=== PATIENT | male | born 1950 | race Caucasian/White ===

== ENCOUNTER 2024-01-14 07:28 | Day surgery (SDC) | payer MEDICARE, OTHER ==
[~2024-01-14] VITALS: Ht 182.9 cm; Wt 105.1 kg
[2024-01-14] VITALS (12 sets, daily range): BP systolic 104–134; BP diastolic 48–89; PULSE 65–81; RESP 10–12; TEMP 97.7; O2SAT 95–98
[2024-01-14] MEDS ORDERED: nitroGLYCERIN 0.4mg SUBLingual tab SL PRN (08:05)
[2024-01-14] MEDS ORDERED: ASPI-1397 PO (08:06)
[2024-01-14] MEDS ORDERED: CHOL20002 PO (08:06)
[2024-01-14] MEDS ORDERED: MULT-1085 PO (08:06)
[2024-01-14] MEDS ORDERED: LISI20TA28 PO (08:06)
[2024-01-14 08:08] LABS: BASOPHILS # (AUTO) 0.1 X10'3 (0-0.2); EOSINOPHILS # (AUTO) 0.2 X10'3 (0-0.9); EOSINOPHILS % (AUTO) 2.3 % (0-6); HEMATOCRIT 48.4 % (42.0-52.0); HEMOGLOBIN 16.5 g/dl (14.0-17.9); LYMPHOCYTES # (AUTO) 3.1 X10'3 (1.1-4.8); LYMPHOCYTES % (AUTO) 34.9 % (21-51); MEAN CORPUSCULAR HEMOGLOBIN 32.5 PG (27.0-31.0); MEAN CORPUSCULAR HGB CONC 34.1 g/dL (33.0-36.5); MEAN CORPUSCULAR VOLUME 95.3 FL (78-98); MONOCYTES # (AUTO) 0.8 X10'3 (0-0.9); MONOCYTES % (AUTO) 9.2 % (2-12); NEUTROPHILS # (AUTO) 4.7 X10'3 (1.8-7.7); NEUTROPHILS % (AUTO) 52.6 % (42-75); PLATELET COUNT 292 X10'3 (140-440); RED BLOOD COUNT 5.08 X10'6 (4.70-6.10); RED CELL DISTRIBUTION WIDTH 13.3 % (11.5-14.5); WHITE BLOOD COUNT 8.9 X10'3 (4.5-11.0)
[2024-01-14 08:18] LABS: ALBUMIN 3.5 G/DL (3.4-5.0); ANION GAP 10 (8-16); BLOOD UREA NITROGEN 22 MG/DL (7-18); BUN/CREATININE RATIO 17.6 (10.0-20.0); CHLORIDE 104 MMOL/L (99-107); CREATININE 1.25 MG/DL (0.60-1.10); GLUCOSE 108 MG/DL (70-104); POTASSIUM 4.1 MMOL/L (3.5-5.1); SODIUM 138 MMOL/L (135-145); TOTAL CARBON DIOXIDE 24.3 MMOL/L (24-32); eCRCL 59 ML/MIN; eGFR 57 ML/MIN
[2024-01-14] MEDS: LORazepam 0.5 MG tablet PO PRN (08:26)
[2024-01-14] MEDS: diphenhydrAMINE 25mg capsule PO PRN (08:26)
[2024-01-14] MEDS: normal saline 1,000 ML IV SCH (08:27)
[2024-01-14 08:40] LABS: APTT 27 SECONDS (22-32); PROTHROMBIN TIME 10.8 SECONDS (9.0-12.0)
[2024-01-14] MEDS ORDERED: iohexol 350 MG/ML 50ML vial IV ONE (08:45)
[2024-01-14] MEDS ORDERED: LIDOcaine 1% 30ml preserv. free vial ONE (08:45)
[2024-01-14] MEDS ORDERED: iohexol 350MG/ML 100ml bottle IV ONE (08:45)
[2024-01-14] MEDS ORDERED: midazolam 1 mg/ML 2ml injection ONE (08:52)
[2024-01-14] MEDS ORDERED: fentaNYL/PF 50MCG/1 ML 2ML syringe ONE (08:52)
[2024-01-14] MEDS ORDERED: acetaminophen 325mg tablet PO PRN (10:35)
[2024-01-14] MEDS ORDERED: ondansetron/PF 4mg/2ml inj IV PRN (10:35)
[2024-01-14] MEDS ORDERED: proCHLORperazine 10 MG/2 ml inj IV PRN (10:35)
[2024-01-14] MEDS ORDERED: HYDROcodone/acetaminophen 10/325mg tab PO PRN (10:35)
[2024-01-14] MEDS ORDERED: HYDROcodone/acetaminophen 5mg/325mg tablet PO PRN (10:35)
[2024-01-14] MEDS ORDERED: normal saline 1000ml 1,000 ML IV SCH (10:35)
[2024-01-14] MEDS ORDERED: OXAZEpam 15mg capsule PO PRN (10:35)
== END 2024-01-14 15:50 | disposition home or self-care (01) ==
LOC: SSTAY O 07:28
PROVIDERS: ATTEND Internal Medicine Cardiovascular Disease
DX: R94.39 Abnormal result of other cardiovascular function study (principal); I25.10 Atherosclerotic heart disease of native coronary artery without angina pectoris; I10 Essential (primary) hypertension; E66.9 Obesity, unspecified; Z68.31 Body mass index [BMI] 31.0-31.9, adult
CPT/HCPCS: 36415; 71046; 80048; 85025; 85610; 85730; 93005; 93459; 99152; A6258; C1760; J1644; J2001; J2250; J3010; J7030; Q0163; Q9967; Z7610; 93458; 99153; J3490

== ENCOUNTER 2024-02-03 10:26 | Inpatient (IN) | payer MEDICARE, OTHER ==
[2024-01-27] MEDS: albuterol 2.5 MG/3 ML nebule NEB ONE (13:59)
[2024-01-27 14:00] VITALS: PULSE 78; RESP 18; O2SAT 98
[2024-01-27 14:06] VITALS: PULSE 78; RESP 17
[2024-01-27 14:54] LABS: BASOPHILS # (AUTO) 0.1 X10'3 (0-0.2); BASOPHILS % (AUTO) 0.7 % (0-1); EOSINOPHILS # (AUTO) 0.2 X10'3 (0-0.9); EOSINOPHILS % (AUTO) 1.7 % (0-6); LYMPHOCYTES # (AUTO) 4.6 X10'3 (1.1-4.8); LYMPHOCYTES % (AUTO) 41.4 % (21-51); MEAN CORPUSCULAR HEMOGLOBIN 31.7 PG (27.0-31.0); MEAN CORPUSCULAR HGB CONC 33.5 g/dL (33.0-36.5); MEAN CORPUSCULAR VOLUME 94.7 FL (78-98); MEAN PLATELET VOLUME 7.8 FL (7.4-10.4); MONOCYTES % (AUTO) 8.9 % (2-12); NEUTROPHILS # (AUTO) 5.2 X10'3 (1.8-7.7); NEUTROPHILS % (AUTO) 47.3 % (42-75); PRE OP HEMATOCRIT 44.4 % (42.0-52.0); PRE OP HEMOGLOBIN 14.8 g/dL (14.0-17.9); PRE OP PLATELET COUNT 281 X10'3 (140-440); RED BLOOD COUNT 4.68 X10'6 (4.70-6.10); RED CELL DISTRIBUTION WIDTH 13.3 % (11.5-14.5)
[2024-01-27 15:00] LABS: BILIRUBIN,URINE NEGATIVE (Neg); CLARITY,URINE CLEAR (Clear); COLOR,URINE YELLOW (Yellow); GLUCOSE, URINE NEGATIVE (Neg); KETONES,URINE NEGATIVE (Neg); LEUKOCYTE ESTERASE ,URINE NEGATIVE (Neg); NITRITES, URINE NEGATIVE (Neg); OCCULT BLOOD,URINE NEGATIVE (Neg); PH,URINE 5.5 (4.8-8.0); PROTEIN,URINE NEGATIVE (Neg); UROBILINOGEN,URINE 0.2 E.U/dL (0.2-1.0)
[2024-01-27 15:04] LABS: UA COLLECTION TYPE CLN CATCH MIDSTREAM
[2024-01-27 15:06] LABS: PRE OP PROTIME 10.5 SECONDS (9.0-12.0)
[2024-01-27 15:08] LABS: HEMOGLOBIN A1C 5.7 % (4.5-6.2)
[2024-01-27 15:19] LABS: ALBUMIN 3.6 G/DL (3.4-5.0); ALKALINE PHOSPHATASE 76 IU/L (46-116); BLOOD UREA NITROGEN 28 MG/DL (7-18); BUN/CREATININE RATIO 21.1 (10.0-20.0); CHLORIDE 103 MMOL/L (99-107); CREATININE 1.33 MG/DL (0.60-1.10); PRE OP ALT 33 U/L (30-65); PRE OP ANION GAP 10 (8-16); PRE OP AST 34 U/L (10-37); PRE OP BILIRUB, TOTAL 0.5 MG/DL (0.0-1.0); PRE OP GLUCOSE 94 MG/DL (70-104); PRE OP POTASSIUM 3.9 MMOL/L (3.4-5.1); PRE OP SODIUM 136 MMOL/L (135-145); TOTAL CARBON DIOXIDE 23.4 MMOL/L (24-32); TOTAL PROTEIN 7.3 G/DL (6.4-8.2); eGFR 53 ML/MIN
[2024-01-28 07:35] LABS: ABG OXYGEN SATURATION 94.9 % (92-98.5); ABG PCO2 (T) 30.4 mmHg (35.0-48.0); ABG PH (T) 7.435 (7.340-7.440); ABG PO2 (T) 75.6 mmHg (75.0-100.0); ALLEN'S TEST POSITIVE; FCOHb 0.2 % (0.5-1.5); FHHb 5.1 % (0.0-5.0); FLOW 0 L/min; FMetHb 0.2 % (0.0-1.5); FO2Hb 94.5 % (94-97); MODE RA; TOTAL HEMOGLOBIN 15.7 G/dl (14.0-17.9)
[2024-02-03] VITALS (24 sets, daily range): BP systolic 92–153; BP diastolic 35–93; PULSE 68–92; RESP 12–20; TEMP 96.6; O2SAT 93–98
[~2024-02-03] VITALS: Ht 182.9 cm; Wt 111.3 kg
[2024-02-03] MEDS: ringers solution, lacted 1,000 ML IV SCH (05:30)
[~2024-02-03 10:26] MED LIST: ADVIL PO; ASPI-1397 PO; CHOL20002 PO; EXCEDRIN PO; LISI20TA28 PO; MULT-1085 PO; dextrose 50%-water 50ml dispensing syringe IV PRN
[2024-02-03] MEDS: cefazolin 2gm/D5W 100mL 100 ML IV ONE (10:51)
[2024-02-03] MEDS: Insulin Reg/NS 100units/100mL 100 ML IV SCH ×2 (10:52→16:39)
[2024-02-03] MEDS: vancomycin 1,000mg inj ONE (11:01)
[2024-02-03] MEDS: heparin 10,000 units/1 ML INJ ONE (11:01)
[2024-02-03] MEDS: epiNEPHrine 1 mg/ml inj ONE (11:01)
[2024-02-03] MEDS: ceFAZolin 1000mg inj ONE (11:01)
[2024-02-03] MEDS: BUPIVAcaine 0.5% inj/PF 30 ML ONE ×2 (11:01→13:33)
[2024-02-03] MEDS ORDERED: MIDAZolam 1mg/ml 10ml vial ONE (11:18)
[2024-02-03] MEDS ORDERED: SUfentanil 50mcg/ml 1ml amp IV ONE (11:18)
[2024-02-03] MEDS: vancomycin 1,500 MG in NS 300ml IV soln IV ONE (11:51)
[2024-02-03] MEDS: mupirocin 2% nasal ointment 1gm UD NS ONE (11:51)
[2024-02-03] MEDS: metoprolol tartrate 12.5mg (1/2 tablet) PO ONE (11:52)
[2024-02-03] MEDS: famotidine 20mg tablet PO ONE (11:52)
[2024-02-03] MEDS: albuterol 2.5 MG/3 ML nebule NEB ONE (12:12)
[2024-02-03] MEDS ORDERED: isoflurane 100ml inhalation liquid IH ONE (12:17)
[2024-02-03] MEDS: LORazepam 2 mg/ml vial IV ONE (12:19)
[2024-02-03 12:55] LABS: ABG BASE EXCESS -4.2 mmol/L (-2.0-2.0); ABG HCO3 21.1 mmol/L (22.0-26.0); ABG OXYGEN SATURATION 98.9 % (92-98.5); ABG PCO2 39.6 mmHg (35.0-48.0); ABG PH 7.344 (7.340-7.440); ABG PO2 183.1 mmHg (75.0-100.0); CL (ABG) 104 mmol/L (99-107); FCOHb 0.3 % (0.5-1.5); FHHb 1.1 % (0.0-5.0); FMetHb 0.3 % (0.0-1.5); FO2Hb 98.3 % (94-97); GLUCOSE (ABG) 84 mg/dl (70-104); IONIZED CA (ABG) 1.11 mmol/L (1.10-1.30); K (ABG) 3.8 mmol/L (3.5-5.1)
[2024-02-03] MEDS: BUPIVAcaine 0.5% inj/PF 30 ml vial IJ ONE (13:00)
[2024-02-03] MEDS ORDERED: propofol inj 20 ML IV ONE (13:08)
[2024-02-03] MEDS ORDERED: phenylephrine 10mg/ml inj. -priapism dosing ONE (13:09)
[2024-02-03] MEDS ORDERED: rocuronium 10mg/ml inj IV ONE ×4 (13:09→13:21)
[2024-02-03] MEDS ORDERED: LIDOcaine 2% (20mg/ml) 5ml vial ONE (13:09)
[2024-02-03] MEDS ORDERED: 0.9 % SODIUM CHLORIDE 10 ML VIAL ONE (13:09)
[2024-02-03 14:08] LABS: ABG BASE EXCESS VENOUS -2.1 mmol/L (-2.0 - 2.0); ABG HCO3 VENOUS 23.5 mmol/L (21.0-28.0); ABG OXYGEN SATURATION VENOUS 85.5 % (75 - 99 %); ABG PCO2 VENOUS 43.5 mmHg (41.0-54.0); ABG PO2 VENOUS 50.2 mmHg (25.0-35.0); CL (ABG) 100 mmol/L (99-107); FCOHb VENOUS 0.3 % (0.0-3.9); FHHb VENOUS 14.4 %; FMetHb VENOUS 0.3 % (0.0-0.5); GLUCOSE (ABG) 97 mg/dl (70-104); IONIZED CA (ABG) 0.95 mmol/L (1.10-1.30); K (ABG) 3.7 mmol/L (3.5-5.1); TOTAL HEMOGLOBIN 10.5 G/dl (14.0-17.9)
[2024-02-03] MEDS: FENTANYL-0.9 % NACL/PF 100 ML IV SCH (14:10)
[2024-02-03] MEDS: midazolam 1 mg/ML 2ml injection IV ONE (14:10)
[2024-02-03] MEDS: midazolam 100mg in NS 100ml 100 ML IV SCH (14:10)
[2024-02-03] MEDS ORDERED: fentaNYL/PF 50MCG/1 ML 2ML syringe IV PRN (14:10)
[2024-02-03 14:18] LABS: ABG BASE EXCESS -3.3 mmol/L (-2.0-2.0); ABG HCO3 22.5 mmol/L (22.0-26.0); ABG OXYGEN SATURATION 99.2 % (92-98.5); ABG PCO2 43.1 mmHg (35.0-48.0); ABG PH 7.335 (7.340-7.440); ABG PO2 371.1 mmHg (75.0-100.0); CL (ABG) 102 mmol/L (99-107); FCOHb 0.2 % (0.5-1.5); FHHb 0.8 % (0.0-5.0); FMetHb 0.3 % (0.0-1.5); FO2Hb 98.7 % (94-97); GLUCOSE (ABG) 98 mg/dl (70-104); IONIZED CA (ABG) 1.02 mmol/L (1.10-1.30); K (ABG) 4.3 mmol/L (3.5-5.1)
[2024-02-03 14:51] LABS: ABG BASE EXCESS -3.7 mmol/L (-2.0-2.0); ABG HCO3 21.8 mmol/L (22.0-26.0); ABG OXYGEN SATURATION 99.1 % (92-98.5); ABG PCO2 41.2 mmHg (35.0-48.0); ABG PH 7.341 (7.340-7.440); ABG PO2 291.4 mmHg (75.0-100.0); CL (ABG) 103 mmol/L (99-107); FCOHb 0.3 % (0.5-1.5); FHHb 0.9 % (0.0-5.0); FMetHb 0.1 % (0.0-1.5); FO2Hb 98.7 % (94-97); GLUCOSE (ABG) 107 mg/dl (70-104); IONIZED CA (ABG) 1.06 mmol/L (1.10-1.30); K (ABG) 4.5 mmol/L (3.5-5.1); TOTAL HEMOGLOBIN 11.9 G/dl (14.0-17.9)
[2024-02-03 15:12] LABS: ABG BASE EXCESS -2.4 mmol/L (-2.0-2.0); ABG HCO3 23.5 mmol/L (22.0-26.0); ABG OXYGEN SATURATION 99.1 % (92-98.5); ABG PCO2 45.2 mmHg (35.0-48.0); ABG PH 7.334 (7.340-7.440); ABG PO2 355.2 mmHg (75.0-100.0); CL (ABG) 103 mmol/L (99-107); FCOHb 0.3 % (0.5-1.5); FHHb 0.9 % (0.0-5.0); FMetHb 0.3 % (0.0-1.5); FO2Hb 98.5 % (94-97); GLUCOSE (ABG) 114 mg/dl (70-104); IONIZED CA (ABG) 1.91 mmol/L (1.10-1.30); K (ABG) 4.4 mmol/L (3.5-5.1); TOTAL HEMOGLOBIN 11.5 G/dl (14.0-17.9)
[2024-02-03] MEDS ORDERED: ondansetron/PF 4mg/2ml inj ONE (15:27)
[2024-02-03] MEDS ORDERED: dexamethasone sod phosphate 4mg/ml inj. ONE (15:27)
[2024-02-03 15:29] LABS: ABG BASE EXCESS -3.1 mmol/L (-2.0-2.0); ABG HCO3 21.3 mmol/L (22.0-26.0); ABG OXYGEN SATURATION 98.7 % (92-98.5); ABG PO2 221.8 mmHg (75.0-100.0); CL (ABG) 104 mmol/L (99-107); FCOHb 0.2 % (0.5-1.5); FHHb 1.3 % (0.0-5.0); FMetHb 0.3 % (0.0-1.5); FO2Hb 98.2 % (94-97); GLUCOSE (ABG) 110 mg/dl (70-104); IONIZED CA (ABG) 1.21 mmol/L (1.10-1.30); K (ABG) 4.3 mmol/L (3.5-5.1); TOTAL HEMOGLOBIN 11.6 G/dl (14.0-17.9)
[2024-02-03 15:32] LABS: ACTIVATED CLOTTING TIME 130 SEC (101-148)
[2024-02-03] MEDS ORDERED: ceFAZolin 1000mg inj ONE (15:37)
[2024-02-03] MEDS ORDERED: potassium Cl 20 mEq SR tablet PO PRN (16:05)
[2024-02-03] MEDS ORDERED: potassium Cl 40MEQ/1/2NS 520ml 520 ML IV PRN (16:05)
[2024-02-03] MEDS ORDERED: insulin glargine (Lantus) pen - multi-dose SQ PRN (16:05)
[2024-02-03] MEDS ORDERED: sodium phosphate inj. 30 MMOL in dextrose 5%-water 250 ML IV PRN (16:05)
[2024-02-03] MEDS ORDERED: potassium CL 10mEq/100ml bag 100 ML IV PRN (16:05)
[2024-02-03] MEDS ORDERED: sodium phosphate inj. 15 MMOL in dextrose 5%-water 250 ML IV PRN (16:05)
[2024-02-03] MEDS ORDERED: mineral oil 133ml enema RC PRN (16:05)
[2024-02-03] MEDS ORDERED: dextrose 50%-water 50ml dispensing syringe IV PRN (16:05)
[2024-02-03] MEDS ORDERED: magnesium sulf-water 4G/100mL 100 ML IV PRN (16:05)
[2024-02-03] MEDS ORDERED: metoclopramide 5 mg/ml inj IV PRN (16:05)
[2024-02-03] MEDS ORDERED: bisacodyl 10mg suppository rectal RC PRN (16:05)
[2024-02-03] MEDS ORDERED: potassium Cl 40MEQ/270ML bag 250 ML IV PRN (16:05)
[2024-02-03] MEDS ORDERED: Neutra Phos packet PO PRN (16:05)
[2024-02-03] MEDS ORDERED: niCARDipine-NS 40mg/200ml IVPB 200 ML IV PRN (16:05)
[2024-02-03] MEDS ORDERED: ondansetron/PF 4mg/2ml inj IV PRN (16:05)
[2024-02-03 16:30] LABS: ABG BASE EXCESS -2.3 mmol/L (-2.0-2.0); ABG HCO3 22.8 mmol/L (22.0-26.0); ABG OXYGEN SATURATION 99.2 % (92-98.5); ABG PCO2 (T) 40.4 mmHg (35.0-48.0); ABG PH (T) 7.369 (7.340-7.440); ABG PO2 (T) 168.6 mmHg (75.0-100.0); FCOHb 0.5 % (0.5-1.5); FHHb 0.8 % (0.0-5.0); FMetHb 0.3 % (0.0-1.5); FO2Hb 98.4 % (94-97); MODE VENT - SIMV; PATIENT TEMPERATURE 36.9; PEEP 5 cm H2O; RESPIRATORY RATE 12 b/min; TIDAL VOLUME 600 mL; TOTAL HEMOGLOBIN 14.1 G/dl (14.0-17.9)
[2024-02-03] MEDS: sodium chloride 0.45% 1,000 ML IV SCH (16:36)
[2024-02-03] MEDS: albumin (Human) 5% 250ml 250 ML IV PRN (16:38)
[2024-02-03] MEDS: nitroGLYCERIN-Tridil 50MG/D5W 250 ML IV SCH (16:45)
[2024-02-03 17:01] LABS: BASOPHILS % (AUTO) 0.2 % (0-1); EOSINOPHILS # (AUTO) 0.1 X10'3 (0-0.9); EOSINOPHILS % (AUTO) 0.3 % (0-6); HEMATOCRIT 40.7 % (42.0-52.0); HEMOGLOBIN 13.6 g/dl (14.0-17.9); LYMPHOCYTES # (AUTO) 1.9 X10'3 (1.1-4.8); LYMPHOCYTES % (AUTO) 10.1 % (21-51); MEAN CORPUSCULAR HEMOGLOBIN 32.1 PG (27.0-31.0); MEAN CORPUSCULAR HGB CONC 33.5 g/dL (33.0-36.5); MEAN CORPUSCULAR VOLUME 95.8 FL (78-98); MEAN PLATELET VOLUME 8.4 FL (7.4-10.4); MONOCYTES # (AUTO) 0.9 X10'3 (0-0.9); MONOCYTES % (AUTO) 4.8 % (2-12); NEUTROPHILS % (AUTO) 84.6 % (42-75); PLATELET COUNT 238 X10'3 (140-440); RED BLOOD COUNT 4.25 X10'6 (4.70-6.10); RED CELL DISTRIBUTION WIDTH 13.4 % (11.5-14.5); WHITE BLOOD COUNT 18.9 X10'3 (4.5-11.0)
[2024-02-03 17:20] LABS: ALANINE AMINOTRANSFERASE 28 U/L (12-78); ALBUMIN/GLOBULIN RATIO 1.2 (1.1-1.5); ALKALINE PHOSPHATASE 54 IU/L (46-116); ANION GAP 12 (8-16); ASPARTATE AMINO TRANSFERASE 41 U/L (10-37); BILIRUBIN,TOTAL 0.6 MG/DL (0.1-1.0); BLOOD UREA NITROGEN 17 MG/DL (7-18); CALCIUM 8.6 MG/DL (8.5-10.1); CHLORIDE 103 MMOL/L (99-107); CREATININE 1.13 MG/DL (0.60-1.10); GLUCOSE 140 MG/DL (70-104); MAGNESIUM 2.1 MG/DL (1.5-2.4); SODIUM 138 MMOL/L (135-145); TOTAL CARBON DIOXIDE 23.3 MMOL/L (24-32); TOTAL PROTEIN 5.6 G/DL (6.4-8.2); eCRCL 65 ML/MIN; eGFR 64 ML/MIN
[2024-02-03 17:21] LABS: POTASSIUM 4.6 MMOL/L (3.5-5.1)
[2024-02-03] MEDS: magnesium sulf-water 2g/50mL 50 ML IV PRN (17:25)
[2024-02-03 18:04] LABS: FIBRINOGEN 314 MG/DL (177-424); INR 1.1 INR
[2024-02-03 18:12] LABS: APTT 29 SECONDS (22-32); PROTHROMBIN TIME 11.2 SECONDS (9.0-12.0)
[2024-02-03] MEDS: NORepinephrine 8mg/ 250ml NS 250 ML IV PRN (18:53)
[2024-02-03] MEDS: mupirocin 2% nasal ointment 1gm UD NS SCH (20:07)
[2024-02-03] MEDS: sennosides/docusate sodium tablet PO SCH (20:07)
[2024-02-03] MEDS: vancomycin/NS 1 GM ADD-VANTAGE 250 ML IV SCH (20:07)
[2024-02-03] MEDS: atorvastatin 10mg tablet PO SCH (20:07)
[2024-02-03] MEDS: morphine 4 MG/ML inj SYRINge IV PRN (20:48)
[2024-02-03 22:28] LABS: BASOPHILS % (AUTO) 0.1 % (0-1); EOSINOPHILS % (AUTO) 0 % (0-6); HEMOGLOBIN 11.9 g/dl (14.0-17.9); LYMPHOCYTES # (AUTO) 0.6 X10'3 (1.1-4.8); LYMPHOCYTES % (AUTO) 3.9 % (21-51); MEAN CORPUSCULAR HGB CONC 33.2 g/dL (33.0-36.5); MEAN CORPUSCULAR VOLUME 96.6 FL (78-98); MEAN PLATELET VOLUME 8.2 FL (7.4-10.4); MONOCYTES # (AUTO) 0.8 X10'3 (0-0.9); MONOCYTES % (AUTO) 5.3 % (2-12); NEUTROPHILS # (AUTO) 13.7 X10'3 (1.8-7.7); NEUTROPHILS % (AUTO) 90.7 % (42-75); PLATELET COUNT 242 X10'3 (140-440); RED BLOOD COUNT 3.73 X10'6 (4.70-6.10); RED CELL DISTRIBUTION WIDTH 13.8 % (11.5-14.5); WHITE BLOOD COUNT 15.1 X10'3 (4.5-11.0)
[2024-02-03 22:36] LABS: ALBUMIN 3.6 G/DL (3.4-5.0); ANION GAP 17 (8-16); BLOOD UREA NITROGEN 19 MG/DL (7-18); BUN/CREATININE RATIO 11.2 (10.0-20.0); CALCIUM 8.5 MG/DL (8.5-10.1); CHLORIDE 105 MMOL/L (99-107); CREATININE 1.69 MG/DL (0.60-1.10); GLUCOSE 167 MG/DL (70-104); MAGNESIUM 2.6 MG/DL (1.5-2.4); PHOSPHORUS 3.3 MG/DL (2.3-4.5); POTASSIUM 4.2 MMOL/L (3.5-5.1); SODIUM 140 MMOL/L (135-145); TOTAL CARBON DIOXIDE 17.8 MMOL/L (24-32); eCRCL 43 ML/MIN; eGFR 40 ML/MIN
[2024-02-03] MEDS: potassium Cl 20mEq/100mL bag 100 ML IV PRN (22:44)
[2024-02-03 22:58] LABS: ABG BASE EXCESS -7.9 mmol/L (-2.0-2.0); ABG HCO3 16.7 mmol/L (22.0-26.0); ABG OXYGEN SATURATION 94.8 % (92-98.5); ABG PCO2 (T) 31.6 mmHg (35.0-48.0); ABG PH (T) 7.342 (7.340-7.440); ABG PO2 (T) 78.9 mmHg (75.0-100.0); FCOHb 0.1 % (0.5-1.5); FHHb 5.2 % (0.0-5.0); FMetHb 0.3 % (0.0-1.5); FO2Hb 94.4 % (94-97); MODE spont 10/5; PEEP 5 cm H2O; TOTAL HEMOGLOBIN 12.4 G/dl (14.0-17.9)
[2024-02-03] MEDS: sodium bicarbonate (8.4%) 1 mEq/ml syringe IV ONE (23:21)
[2024-02-04] VITALS (26 sets, daily range): BP systolic 99–128; BP diastolic 45–123; PULSE 71–88; RESP 11–21; TEMP 98; O2SAT 90–97
[2024-02-04] MEDS: morphine 2 MG/ML inj. syringe IV PRN (00:05)
[2024-02-04] MEDS: ceFAZolin/D5W- 1GM premix 50 ML IV SCH (01:27)
[2024-02-04 03:10] LABS: BASOPHILS % (AUTO) 0.1 % (0-1); EOSINOPHILS % (AUTO) 0 % (0-6); HEMOGLOBIN 11.3 g/dl (14.0-17.9); LYMPHOCYTES # (AUTO) 0.6 X10'3 (1.1-4.8); LYMPHOCYTES % (AUTO) 4.4 % (21-51); MEAN CORPUSCULAR HEMOGLOBIN 31.7 PG (27.0-31.0); MEAN CORPUSCULAR HGB CONC 33.3 g/dL (33.0-36.5); MEAN CORPUSCULAR VOLUME 95.1 FL (78-98); MEAN PLATELET VOLUME 8.1 FL (7.4-10.4); MONOCYTES # (AUTO) 0.8 X10'3 (0-0.9); MONOCYTES % (AUTO) 6.1 % (2-12); NEUTROPHILS # (AUTO) 11.7 X10'3 (1.8-7.7); NEUTROPHILS % (AUTO) 89.4 % (42-75); PLATELET COUNT 210 X10'3 (140-440); RED BLOOD COUNT 3.58 X10'6 (4.70-6.10); RED CELL DISTRIBUTION WIDTH 13.3 % (11.5-14.5); WHITE BLOOD COUNT 13.1 X10'3 (4.5-11.0)
[2024-02-04 03:25] LABS: ALANINE AMINOTRANSFERASE 30 U/L (12-78); ALBUMIN 3.4 G/DL (3.4-5.0); ALBUMIN/GLOBULIN RATIO 1.5 (1.1-1.5); ALKALINE PHOSPHATASE 42 IU/L (46-116); ANION GAP 7 (8-16); ASPARTATE AMINO TRANSFERASE 79 U/L (10-37); BILIRUBIN,TOTAL 0.5 MG/DL (0.1-1.0); BLOOD UREA NITROGEN 19 MG/DL (7-18); BUN/CREATININE RATIO 12.3 (10.0-20.0); CALCIUM 8.4 MG/DL (8.5-10.1); CHLORIDE 108 MMOL/L (99-107); CREATININE 1.55 MG/DL (0.60-1.10); GLUCOSE 152 MG/DL (70-104); MAGNESIUM 2.4 MG/DL (1.5-2.4); PHOSPHORUS 2.8 MG/DL (2.3-4.5); POTASSIUM 4.6 MMOL/L (3.5-5.1); SODIUM 139 MMOL/L (135-145); TOTAL CARBON DIOXIDE 23.6 MMOL/L (24-32); TOTAL PROTEIN 5.6 G/DL (6.4-8.2); eCRCL 47 ML/MIN; eGFR 44 ML/MIN
[2024-02-04 06:59] LABS: ACT @ 1.70 U 278 SEC (193-297); ACT @ 2.84 U 382 SEC (260-420); BASELINE ACT 144 SEC (101-148)
[2024-02-04] MEDS: metoprolol tartrate 12.5mg (1/2 tablet) PO SCH (07:30)
[2024-02-04] MEDS: aspirin 81mg tab.chew PO SCH (07:31)
[2024-02-04] MEDS: HYDROcodone/acetaminophen 10/325mg tab PO PRN ×2 (11:42→15:24)
[2024-02-04] MEDS: clopidogrel 75mg tablet PO SCH (14:19)
[2024-02-04] MEDS ORDERED: DEXTROSE 15 GM of carb/4 tabs (each vial/BOTTLE has 4 tablets) PO PRN ×2 (17:25)
[2024-02-04] MEDS ORDERED: dextrose 50%-water 50ml dispensing syringe IV PRN ×2 (17:25)
[2024-02-04] MEDS ORDERED: glucagon, human recombinant 1mg kit SUBCUT PRN (17:25)
[2024-02-04] MEDS: INSULIN LISPRO 100 UNIT/ML INSULN.PEN MULTI-DOSE SQ SCH (17:51)
[2024-02-04] MEDS ORDERED: mineral oil/petrolatum ophthal oint EACHEYE SCH (20:00)
[2024-02-05] VITALS (15 sets, daily range): BP systolic 61–126; BP diastolic 57–79; PULSE 65–98; RESP 11–21; TEMP 97–97.7; O2SAT 92–96
[2024-02-05 02:34] LABS: BASOPHILS # (AUTO) 0.1 X10'3 (0-0.2); BASOPHILS % (AUTO) 0.3 % (0-1); EOSINOPHILS % (AUTO) 0 % (0-6); HEMOGLOBIN 10.4 g/dl (14.0-17.9); LYMPHOCYTES # (AUTO) 0.9 X10'3 (1.1-4.8); LYMPHOCYTES % (AUTO) 4.5 % (21-51); MEAN CORPUSCULAR HEMOGLOBIN 32.4 PG (27.0-31.0); MEAN CORPUSCULAR HGB CONC 33.7 g/dL (33.0-36.5); MEAN CORPUSCULAR VOLUME 96.2 FL (78-98); MEAN PLATELET VOLUME 8.6 FL (7.4-10.4); MONOCYTES # (AUTO) 1.4 X10'3 (0-0.9); MONOCYTES % (AUTO) 7.2 % (2-12); NEUTROPHILS # (AUTO) 16.8 X10'3 (1.8-7.7); PLATELET COUNT 178 X10'3 (140-440); RED BLOOD COUNT 3.22 X10'6 (4.70-6.10); RED CELL DISTRIBUTION WIDTH 13.4 % (11.5-14.5); WHITE BLOOD COUNT 19.1 X10'3 (4.5-11.0)
[2024-02-05 02:47] LABS: ANION GAP 6 (8-16); BLOOD UREA NITROGEN 23 MG/DL (7-18); BUN/CREATININE RATIO 19.2 (10.0-20.0); CALCIUM 8.4 MG/DL (8.5-10.1); CHLORIDE 104 MMOL/L (99-107); GLUCOSE 170 MG/DL (70-104); POTASSIUM 5.2 MMOL/L (3.5-5.1); SODIUM 137 MMOL/L (135-145); TOTAL CARBON DIOXIDE 27.1 MMOL/L (24-32); eCRCL 61 ML/MIN; eGFR 60 ML/MIN
[2024-02-05 02:48] LABS: MAGNESIUM 2.3 MG/DL (1.5-2.4); PHOSPHORUS 3.8 MG/DL (2.3-4.5)
[2024-02-05] MEDS: acetaminophen 325mg tablet PO PRN (03:49)
[2024-02-05] MEDS: pantoprazole 40mg Tablet.DR PO SCH (07:35)
[2024-02-06] VITALS (8 sets, daily range): BP systolic 92–145; BP diastolic 49–94; PULSE 67–101; RESP 14–19; TEMP 97–98.7; O2SAT 92–98
[2024-02-06 06:37] LABS: BASOPHILS % (AUTO) 0.3 % (0-1); EOSINOPHILS % (AUTO) 0.1 % (0-6); HEMATOCRIT 31.7 % (42.0-52.0); HEMOGLOBIN 10.7 g/dl (14.0-17.9); LYMPHOCYTES # (AUTO) 1.7 X10'3 (1.1-4.8); LYMPHOCYTES % (AUTO) 14.4 % (21-51); MEAN CORPUSCULAR HEMOGLOBIN 32.5 PG (27.0-31.0); MEAN CORPUSCULAR HGB CONC 33.8 g/dL (33.0-36.5); MEAN CORPUSCULAR VOLUME 96.1 FL (78-98); MEAN PLATELET VOLUME 8.6 FL (7.4-10.4); MONOCYTES # (AUTO) 1.1 X10'3 (0-0.9); MONOCYTES % (AUTO) 9.4 % (2-12); NEUTROPHILS # (AUTO) 8.8 X10'3 (1.8-7.7); NEUTROPHILS % (AUTO) 75.8 % (42-75); PLATELET COUNT 165 X10'3 (140-440); RED CELL DISTRIBUTION WIDTH 13.5 % (11.5-14.5); WHITE BLOOD COUNT 11.6 X10'3 (4.5-11.0)
[2024-02-06 06:57] LABS: ALBUMIN 2.7 G/DL (3.4-5.0); ANION GAP 5 (8-16); BLOOD UREA NITROGEN 23 MG/DL (7-18); BUN/CREATININE RATIO 21.1 (10.0-20.0); CALCIUM 8.5 MG/DL (8.5-10.1); CHLORIDE 102 MMOL/L (99-107); CREATININE 1.09 MG/DL (0.60-1.10); GLUCOSE 118 MG/DL (70-104); MAGNESIUM 1.9 MG/DL (1.5-2.4); PHOSPHORUS 2.9 MG/DL (2.3-4.5); POTASSIUM 4.2 MMOL/L (3.5-5.1); SODIUM 138 MMOL/L (135-145); TOTAL CARBON DIOXIDE 31.3 MMOL/L (24-32); eCRCL 67 ML/MIN; eGFR 66 ML/MIN
[2024-02-06] MEDS: potassium Cl 20 mEq SR tablet PO SCH (09:47)
[2024-02-06] MEDS: furosemide 20 MG/2 ML vial IV SCH (09:47)
[2024-02-06] MEDS: magnesium oxide 400mg tablet PO SCH (09:47)
[2024-02-06] MEDS: magnesium hydroxide 30ml (MOM) UD suspension PO PRN (09:48)
[2024-02-06] MEDS: JUVEN Shake w/Arg/Glut/Ca2+Bmb (Juven 19.3gm) pkt 240ml PO SCH (18:13)
[2024-02-06] MEDS: lactose-reduced food (Ensure Enlive) - 237ml bottle PO SCH (18:13)
[2024-02-06] MEDS: acetaminophen 325mg tablet PO PRN (20:02)
[2024-02-07 02:00] VITALS: BP 112/73; PULSE 86; RESP 15; TEMP 96.7; O2SAT 94
[2024-02-07 06:00] VITALS: BP_SYST 115; BP_SYST 151; BP_DIAS 70; BP_DIAS 77; PULSE 70; PULSE 75; RESP 16; RESP 18; TEMP 96.9; TEMP 98; O2SAT 95; O2SAT 96
[2024-02-07 07:33] LABS: BASOPHILS % (AUTO) 0.3 % (0-1); EOSINOPHILS # (AUTO) 0.1 X10'3 (0-0.9); EOSINOPHILS % (AUTO) 0.7 % (0-6); HEMATOCRIT 36.5 % (42.0-52.0); HEMOGLOBIN 12.4 g/dl (14.0-17.9); LYMPHOCYTES # (AUTO) 1.8 X10'3 (1.1-4.8); LYMPHOCYTES % (AUTO) 17.9 % (21-51); MEAN CORPUSCULAR HEMOGLOBIN 32.7 PG (27.0-31.0); MEAN CORPUSCULAR HGB CONC 34.1 g/dL (33.0-36.5); MEAN CORPUSCULAR VOLUME 95.9 FL (78-98); MONOCYTES % (AUTO) 10.4 % (2-12); NEUTROPHILS % (AUTO) 70.7 % (42-75); PLATELET COUNT 207 X10'3 (140-440); RED CELL DISTRIBUTION WIDTH 13.3 % (11.5-14.5); WHITE BLOOD COUNT 9.9 X10'3 (4.5-11.0)
[2024-02-07 08:02] LABS: ALBUMIN 2.6 G/DL (3.4-5.0); ANION GAP 6 (8-16); BLOOD UREA NITROGEN 17 MG/DL (7-18); BUN/CREATININE RATIO 18.7 (10.0-20.0); CALCIUM 8.6 MG/DL (8.5-10.1); CHLORIDE 103 MMOL/L (99-107); CREATININE 0.91 MG/DL (0.60-1.10); GLUCOSE 109 MG/DL (70-104); PHOSPHORUS 3.8 MG/DL (2.3-4.5); POTASSIUM 3.7 MMOL/L (3.5-5.1); SODIUM 138 MMOL/L (135-145); TOTAL CARBON DIOXIDE 28.6 MMOL/L (24-32); eCRCL 81 ML/MIN; eGFR 82 ML/MIN
[2024-02-07 08:40] VITALS: RESP 18; O2SAT 95
[2024-02-07] MEDS ORDERED: CLOP75TA34 PO (08:55)
[2024-02-07] MEDS ORDERED: PANT40TA54 PO (08:55)
[2024-02-07] MEDS ORDERED: ATOR10TA PO (08:55)
[2024-02-07] MEDS ORDERED: POTA-206 PO (08:55)
[2024-02-07] MEDS ORDERED: FURO-150 PO (08:55)
[2024-02-07] MEDS ORDERED: MAGN400T56 PO (08:55)
[2024-02-07] MEDS ORDERED: LOP12.5T PO (08:55)
[2024-02-07] MEDS ORDERED: TRAM50TA2 PO (08:55)
[2024-02-07 11:00] VITALS: BP_SYST 100; BP_SYST 142; BP_DIAS 62; BP_DIAS 70; PULSE 70; PULSE 89; RESP 16; RESP 18; TEMP 97.5; TEMP 98.1; O2SAT 95; O2SAT 97
== END 2024-02-07 13:17 | disposition home or self-care (01) | DRG 235 ==
LOC: PAS IN 10:26 → S STAY 10:27 → UNDOADMIN 10:27 → CICU 2S 14:31 → PCU 3S 02-05 10:34
PROVIDERS: ADMIT Thoracic Surgery (Cardiothoracic Vascular Surgery); ATTEND Thoracic Surgery (Cardiothoracic Vascular Surgery)
PROC: 02100Z8 Bypass Coronary Artery, One Artery from Right Internal Mammary, Open Approach (ICD-10-PCS; 2024-02-03)
PROC: 02100Z9 Bypass Coronary Artery, One Artery from Left Internal Mammary, Open Approach (ICD-10-PCS; 2024-02-03)
PROC: 06BQ4ZZ Excision of Left Saphenous Vein, Percutaneous Endoscopic Approach (ICD-10-PCS; 2024-02-03)
PROC: 5A1221Z Performance of Cardiac Output, Continuous (ICD-10-PCS; 2024-02-03)
PROC: B246ZZ4 Ultrasonography of Right and Left Heart, Transesophageal (ICD-10-PCS; 2024-02-03)
PROC: 021009W Bypass Coronary Artery, One Artery from Aorta with Autologous Venous Tissue, Open Approach (ICD-10-PCS; principal; 2024-02-03 12:17)
DX: I25.10 Atherosclerotic heart disease of native coronary artery without angina pectoris (principal); J96.90 Respiratory failure, unspecified, unspecified whether with hypoxia or hypercapnia; I10 Essential (primary) hypertension; Z79.02 Long term (current) use of antithrombotics/antiplatelets; Z79.899 Other long term (current) drug therapy
CPT/HCPCS: 36415; 36600; 71045; 80048; 80053; 81003; 82330; 82435; 82803; 82947; 82948; 83036; 83735; 84100; 84132; 84295; 85018; 85025; 85347; 85384; 85610; 85730; 86885; 86900; 86901; 86920; 87081; 88300; 93005; 93312; 93325; 93880; 93970; 94002; 94640; 94760; 97110; 97116; 97161; 97530; 97535; A4615; A4618; A6258; A6446; A6449; A7000; C1751; G0378; J0171; J0665; J0690; J1100; J1644; J1815; J1940; J2060; J2150; J2250; J2270; J2370; J2405; J2440; J2704; J2720; J2919; J3370; J3480; J3490; J7030; J7040; J7050; J7120; P9045; P9047